=== PATIENT | female | born 1930 | race Caucasian/White ===

== ENCOUNTER 2017-03-04 12:00 | Observation (INO) | payer MEDICARE ==
[2017-03-04 12:02] VITALS: BMI 23.2
--- NOTE | 2017-03-04 12:15 | CT ---
PROCEDURE: CT HEAD WITHOUT CONTRAST. HISTORY: Code Stroke COMPARISON: None available. TECHNIQUE: Axial computed tomography images were obtained through the head/brain without intravenous contrast. Radiation dose: Total exam DLP = 699 mGy-cm. This CT exam was performed using one or more of the following dose reduction techniques: Automated exposure control, adjustment of the mA and/or kV according to patient size, and/or use of iterative reconstruction technique. FINDINGS: HEMORRHAGE: No intracranial hemorrhage. BRAIN: No mass effect or edema. No atrophy or chronic microvascular ischemic changes. VENTRICLES: Unremarkable. No hydrocephalus. CALVARIUM: Unremarkable. PARANASAL SINUSES: Unremarkable as visualized. No significant inflammatory changes. MASTOID AIR CELLS: Unremarkable as visualized. No inflammatory changes. OTHER FINDINGS: None. IMPRESSION: Normal CT of the Head.
--- NOTE | 2017-03-04 12:19 | ED PDOC ---
Arrival/HPI - General Chief Complaint: Weakness/Neurological Deficit Time Seen by Provider: 03/04/17 12:02 Historian: Patient - History of Present Illness Narrative History of Present Illness (Text): 03/04/17 11:59 Sofy Thompson is an 86 year old female who presents to the emergency department via EMS for a possible stroke today. Patient prior to arrival was in episcopalian when she fell over to the right side (questionable LOC). As per family member patient walks normally at baseline. Patient was seen immediately upon arrival and Code Stroke was called at 12:03. Patient had the same exact episode 5 weeks ago and was worked up at [facility] [place], was admitted for 3 days with all negative tests. Patient has seen followed up with her PMD. Patient otherwise denies any fever, chills, chest pain, shortness of breath, nausea, vomiting, diarrhea, urinary symptoms, back pain, neck pain, headache, dizziness, or any other complaints. PMD: Vasyl Fay MD Time/Duration: Prior to Arrival, 1/2 hour, 1 hour Symptom Onset: Sudden Symptom Course: Unchanged Activities at Onset: Light Context: Other (Baptism) Past Medical History - Provider Review Nursing Documentation Reviewed: Yes - Reproductive Menopause: Yes - Cardiac Hx Cardiac Disorders: Yes Hx Hypertension: Yes - Pulmonary Hx Respiratory Disorders: No - Neurological Hx Neurological Disorder: Yes Hx Alzheimer's Disease: Yes - Hematological/Oncological Hx Blood Disorders: Yes Hx Leukemia: Yes - Psychiatric Hx Substance Use: No - Surgical History Other/Comment: port a cath on the right side of the chest - Anesthesia Hx Anesthesia: Yes Hx Anesthesia Reactions: No Hx Malignant Hyperthermia: No Family/Social History - Physician Review Nursing Documentation Reviewed: Yes Family/Social History: No Known Family HX Smoking Status: n Hx Alcohol Use: No Hx Substance Use: No Allergies/Home Meds Allergies/Adverse Reactions: Allergies No Known Allergies Allergy (Verified 03/04/17 12:01) Home Medications: Home Meds Medication Instructions Recorded Confirmed Acyclovir [Zovirax] 400 mg PO BID 03/04/17 03/04/17 Ibrutinib [Imbruvica] 420 mg PO DAILY 03/04/17 03/04/17 Levetiracetam [Keppra] 250 mg PO BID 03/04/17 03/04/17 Sulfamethoxazole/Trimethoprim 1 tab PO MWF 03/04/17 03/04/17 [Bactrim DS 800 mg-160 mg] amLODIPine [Norvasc] 5 mg PO DAILY 03/04/17 03/04/17 Physical Exam Vital Signs Temp Pulse Resp BP Pulse Ox 03/04/17 17:57 55 L 16 139/87 100 03/04/17 16:00 57 L 18 130/76 100 03/04/17 14:00 56 L 18 141/48 L 98 03/04/17 12:22 98.1 F 53 L 18 142/63 96 - Systems Exam Neurological: Present: Speech Normal, Other (Patient is unable to keep BOTH arms up, LE were able to stay off the stretcher for 5 seconds) Medical Decision Making ED Course and Treatment: 03/04/17 11:59 Impression: 86 year old female presenting for possible stroke. Patient in episcopalian fell to the right side, questionable LOC. Differential Diagnosis include but are not limited to: CVA vs. TIA vs. Syncope Plan: -- Head CT -- Chest X-ray -- EKG -- Labs, Troponin, Urinalysis, Type & Screen -- Reassess and disposition Progress Notes: 03/04/17 12:05 EKG: Ordered, reviewed, and independently interpreted the EKG. Rate : 58 BPM Rhythm : NSR Interpretation : No ST-segment elevations or depressions, no T-wave inversions, normal intervals. 03/04/17 12:14 Procedure: Head CT Dictator: Hill Che MD Impression: Normal CT of the Head. - Lab Interpretations Lab Results: 03/04/17 12:41 03/04/17 12:41 Lab Results 03/04/17 17:15: Troponin I < 0.01 03/04/17 12:58: Blood Type Confirm O POSITIVE 03/04/17 12:41: Blood Type O POSITIVE, Antibody Screen Negative, BBK History Checked No verified bt 03/04/17 12:41: Sodium 142, Potassium 4.1, Chloride 108 H, Carbon Dioxide 26, Anion Gap 12, BUN 22 H, Creatinine 1.1, Est GFR ( Amer) 57, Est GFR (Non- Af Amer) 47, Random Glucose 98, Calcium 9.6, Total Bilirubin 0.5, AST 27, ALT 27 , Alkaline Phosphatase 56, Troponin I < 0.01, Total Protein 6.4, Albumin 3.9, Globulin 2.5, Albumin/Globulin Ratio 1.6, Triglycerides 57, Cholesterol 234 H, LDL Cholesterol Direct 127, HDL Cholesterol 73 H 03/04/17 12:41: PT 10.3, INR 0.95, APTT 24.3 03/04/17 12:41: WBC 10.3, RBC 4.64, Hgb 13.1, Hct 39.6, MCV 85.3, MCH 28.2, MCHC 33.1, RDW 17.3 H, Plt Count 132, Neutrophils % (Manual) 10 L, Lymphocytes % (Manual) 80 H, Atypical Lymphs % 4 H, Monocytes % (Manual) 6 03/04/17 12:20: POC Glucose (mg/dL) 108 I have reviewed the lab results: Yes - RAD Interpretation Narrative RAD Interpretations (Text): 03/04/17 12:14 Procedure: Head CT Dictator: Hill Che MD FINDINGS: HEMORRHAGE: No intracranial hemorrhage. BRAIN: No mass effect or edema. No atrophy or chronic microvascular ischemic changes. VENTRICLES: Unremarkable. No hydrocephalus. CALVARIUM: Unremarkable. PARANASAL SINUSES: Unremarkable as visualized. No significant inflammatory changes. MASTOID AIR CELLS: Unremarkable as visualized. No inflammatory changes. OTHER FINDINGS: None. Impression: Normal CT of the Head. Radiology Orders: 03/04/17 12:02 HEAD W/O (CODE STROKE) [CT] Stat CHEST PORTABLE [RAD] Stat Wood And Hardware Outfitter: Radiologist ED OBSERVATION Discharge: Yes Time of observation admission: 12:00 - Observation admission statement Patient is being placed in observation because:: 2nd troponin NIHSS Scale ([place]) Time Performed: 11:59 - How Severe is the Stoke Baseline Level of Consciousness: 0=Alert LOC to Questions: 0=Both comments correct LOC to commands: 0=Obeys both correctly Best Gaze: 0=Normal Visual: 0=No visual loss Facial: 0=Normal Motor Arm - Left: 1=Drift noted before 10 sec Motor Arm - Right: 1=Drift noted before 10 sec Motor Leg - Left: 0=No drift Motor Leg - Right: 0=No drift Limb Ataxia: 0=Absent Sensory: 0=Normal Best Language: 0=No aphasia Dysarthia: 0=Normal articulation Extinction & Inattention (Neglect): 0=Normal, no object Score: 2 Risk Level: Minor Stroke Risk rTPA Inclusion/Exclusion - Refusal of Treatment Patient Refused Treatment: No - Inclusion Criteria for Altepase Patient is 18 years or Older: Yes The Clinical Diagnosis of Ischemic Stroke That is Causing a Potentially Disabling Neurological Deficit: No Time of Onset is Well Established to be Less Than 270 Minute Before Treatment Would Begin: Yes Risk/Benefit Discussed With Patient/Family Member Present: Yes - Warning to TPA With Conditions Condition: Stroke Serevity Too Mild Additional Condition (For 3-4.5 Hour Window): Age Greater Than 80 - Scribe Statement The provider has reviewed the documentation as recorded by the Justiceibcarlos enrique Santos Provider Attestation: All medical record entries made by the Mackenzie were at my direction and personally dictated by me. I have reviewed the chart and agree that the record accurately reflects my personal performance of the history, physical exam, medical decision making, and the department course for this patient. I have also personally directed, reviewed, and agree with the discharge instructions and disposition. Disposition/Present on Arrival - Present on Arrival Any Indicators Present on Arrival: No History of DVT/PE: No History of Uncontrolled Diabetes: No Urinary Catheter: No History of Decub. Ulcer: No History Surgical Site Infection Following: None - Disposition Have Diagnosis and Disposition been Completed?: Yes Diagnosis: Weakness Disposition: HOME/ ROUTINE Disposition Time: 18:30 Patient Problems: Current Active Problems Problem Status Onset Weakness Acute Condition: GOOD Discharge Instructions (ExitCare): Weakness (ED) Additional Instructions: Thank you for letting us take care of you today. Your provider was Dr. Talamantes. You were treated for weakness. The emergency medical care you received today was directed at your acute symptoms. If you were prescribed any medication, please fill it and take as directed. It may take several days for your symptoms to resolve. Return to the Emergency Department if your symptoms worsen, do not improve, or if you have any other problems. Please contact your doctor or call one of the physicians/clinics you have been referred to that are listed on the Patient Visit Information form that is included in your discharge packet. Bring any paperwork you were given at discharge with you along with any medications you are taking to your follow up visit. Our treatment cannot replace ongoing medical care by a primary care provider (PCP) outside of the emergency department. Thank you for allowing the [facility] team to be part of your care today. Follow up with your doctor tomorrow for re-evaluation. Referrals: Sahrona Fay MD [Primary Care Provider] - Follow up with primary
[2017-03-04 12:23] VITALS: TEMP 98.1
[2017-03-04 12:47] LABS: HEMATOCRIT 39.6 % (36.0-48.0); MEAN CELL VOLUME 85.3 fL (80.0-105.0); MEAN CORPUSCULAR HEMOGLOBIN 28.2 pg (25.0-35.0); MEAN CORPUSCULAR HGB CONC 33.1 g/dl (31.0-37.0); PLATELET COUNT 132 10^3/uL (120.0-450.0); RED CELL DISTRIBUTION WIDTH 17.3 % (11.5-14.5); WHITE BLOOD COUNT 10.3 10^3/ul (4.5-11.0)
[2017-03-04 12:49] LABS: ADD MANUAL DIFF? YES
[2017-03-04 12:55] LABS: INR 0.95 (0.93-1.08); PARTIAL THROMBOPLASTIN TIME 24.3 Seconds (23.7-30.8)
[2017-03-04 12:56] LABS: ALB/GLOB RATIO 1.6 (1.1-1.8); ALKALINE PHOSPHATASE 56 U/L (38-133); ALT/SGPT 27 U/L (7-56); AST/SGOT 27 U/L (15-39); BILIRUBIN,TOTAL 0.5 mg/dL (0.2-1.3); BLOOD UREA NITROGEN 22 mg/dL (7-21); CALCIUM 9.6 mg/dL (8.4-10.5); CARBON DIOXIDE 26 mmol/L (21-33); CHLORIDE 108 mmol/L (98-107); CHOLESTEROL 234 mg/dL (130-200); GFR AFRICAN-AMERICAN 57; GLUCOSE,RANDOM 98 mg/dL (70-110); POTASSIUM 4.1 mmol/L (3.6-5.0); SODIUM 142 mmol/L (132-148); TOTAL PROTEIN 6.4 g/dL (5.8-8.3)
[2017-03-04 13:06] LABS: ATYPICAL LYMPHOCYTE 4 % (0.0-0.0); NEUTROPHIL 10 % (50.0-70.0)
[2017-03-04 13:12] LABS: TROPONIN I < 0.01 ng/mL
--- NOTE | 2017-03-04 14:51 | CARD ---
APPROVED REPORT EKG Measurement Heart [id number] <Conclusion> Sinus bradycardia Minimal voltage criteria for LVH, may be normal variant Borderline ECG
--- NOTE | 2017-03-04 17:57 | RAD ---
HISTORY: CVA COMPARISON: No prior. FINDINGS: LUNGS: Small right lower lobe infiltrate. PLEURA: No significant pleural effusion identified, no pneumothorax apparent. CARDIOVASCULAR: Normal. OSSEOUS STRUCTURES: No significant abnormalities. VISUALIZED UPPER ABDOMEN: Normal. OTHER FINDINGS: Right MediPort catheter in place. IMPRESSION: Small right lower lobe infiltrate.
[2017-03-04 17:58] VITALS: BP 139/87; PULSE 55; RESP 16; O2SAT 100
== END 2017-03-04 18:45 | disposition home or self-care (01) ==
LOC: ED 12:00 → EROBSV 12:01 → MERGE 12:01 → ED 18:41 → UNDODISOB 18:45
PROVIDERS: ADMIT Emergency Medicine; ATTEND Emergency Medicine
DX: R53.1 Weakness (principal); I10 Essential (primary) hypertension; G30.9 Alzheimer's disease, unspecified; F02.80 Dementia in other diseases classified elsewhere, unspecified severity, without behavioral disturbance, psychotic disturbance, mood disturbance, and anxiety; C95.90 Leukemia, unspecified not having achieved remission
CPT/HCPCS: 70450; 71010; 80053; 80061; 82948; 83036; 84484; 85025; 85610; 85730; 86850; 86900; 93005; 99285; G0378